=== PATIENT | female | born 1990 | race Caucasian/White ===

== ENCOUNTER 2019-04-12 13:10 | Emergency (ER) | payer OTHER ==
[~2019-04-12] VITALS: Ht 154.9 cm; Wt 99.8 kg
[2019-04-12 14:32] VITALS: BP_SYST 127
--- NOTE | 2019-04-12 15:39 | NUR ---
Placed in chair 1. MSE completed by myself.
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
--- NOTE | 2019-04-12 15:45 | NUR ---
Denisse Reese EXPENDITURE REQUISITION CLERK at bedside examining patient
[2019-04-12] MEDS ORDERED: IBUPROFEN 800 MG TABLET PO ONE (16:00)
[2019-04-12] MEDS ORDERED: BACITRACIN 1 GM OINT TP ONE (16:00)
[2019-04-12] MEDS ORDERED: HYDROcodone/ACETAMIN 5-325 MG TAB (NORCO/ VICODIN) PO ONE (16:00)
--- NOTE | 2019-04-12 17:30 | NUR ---
Pt state she still continues with pain , notified
[2019-04-12] MEDS ORDERED: MORPHINE SULFATE 10 MG/ML VIAL IM ONE (17:45)
[2019-04-12] MEDS ORDERED: DIPHENHYDRAMINE INJ 50 MG/ML VIAL IM ONE (17:45)
[2019-04-12 18:20] VITALS: BP_SYST 127
--- NOTE | 2019-04-12 18:26 | NUR ---
Patient given written and verbal discharge instructions and verbalizes understanding. ER MD discussed with patient the results and treatment provided. Patient in stable condition. ID arm band removed. Rx of Bacitracin and [place] given. Patient educated on pain management and to follow up with PMD. Pain Scale 2/10 tolerable for pt. Opportunity for questions provided and answered. Medication side effect fact sheet provided.
== END 2019-04-12 18:20 | disposition home or self-care (01) ==
LOC: SED 13:10
DX: S20.212A Contusion of left front wall of thorax, initial encounter (principal); S20.02XA Contusion of left breast, initial encounter; S50.11XA Contusion of right forearm, initial encounter; R03.0 Elevated blood-pressure reading, without diagnosis of hypertension; V49.40XA Driver injured in collision with unspecified motor vehicles in traffic accident, initial encounter; Y93.89 Activity, other specified; Y92.89 Other specified places as the place of occurrence of the external cause; Y99.8 Other external cause status
CPT/HCPCS: 71046; 71100; 73090; 96372; 99284; J1200; J2270

== ENCOUNTER 2019-05-28 06:56 | Emergency (ER) | payer OTHER ==
[~2019-05-28] VITALS: Ht 162.6 cm; Wt 99.8 kg
[2019-05-28 07:10] VITALS: BP_SYST 132
--- NOTE | 2019-05-28 07:11 | NUR ---
Patient to ER bed 7 to gown for evaluation. Side rails up. Report given to Yanci FULTON.
--- NOTE | 2019-05-28 07:15 | NUR ---
pt arrives from home w/ c/o sore throat x 3 days. Pt is currently afebrile. will continue to monitor.
--- NOTE | 2019-05-28 07:35 | NUR ---
Flu and strep swabs have been collected and sent to the lab
--- NOTE | 2019-05-28 07:57 | NUR ---
IDANIA Redman at bedside examining patient.
[2019-05-28 08:03] LABS: STREPTOCOCCUS A SCREEN (RAPID) NEGATIVE (NEGATIVE)
[2019-05-28] MEDS ORDERED: PREDNISONE 20 MG TABLET PO ONE (08:15)
[2019-05-28] MEDS ORDERED: PENICILLIN V POTASSIUM 250 MG TABLET PO ONE (08:15)
[2019-05-28 08:18] LABS: INFLUENZA A&B ANTIGEN SCREEN NEGATIVE FOR A & B (NEGATIVE)
[2019-05-28 08:23] VITALS: BP_SYST 132
--- NOTE | 2019-05-28 08:25 | NUR ---
Patient given written and verbal discharge instructions and verbalizes understanding. ER MD discussed with patient the results and treatment provided. Patient in stable condition. ID arm band removed. Rx of prednisone, pencillin, ibuprofen given. Patient educated on pain management and to follow up with PMD. Pain Scale 3/10. Opportunity for questions provided and answered. Medication side effect fact sheet provided.
== END 2019-05-28 08:25 | disposition home or self-care (01) ==
LOC: SED 06:56
DX: J03.90 Acute tonsillitis, unspecified (principal)
CPT/HCPCS: 86403; 86710; 87081; 99283; J7512; 36415